=== PATIENT | female | born 1990 | race Caucasian/White ===

== ENCOUNTER 2017-06-09 06:27 | Day surgery (SDC) | payer OTHER ==
[2017-06-08 13:07] LABS: HEMATOCRIT 38.8 % (36.0-48.0); HEMOGLOBIN 13.6 g/dL (12-16); MCH 29.4 pg (26.0-34.0); MCHC 35.1 g/dL (31.0-37.0); MEAN PLATELET VOLUME 10.1 fL (7.4-10.4); RBC 4.62 10x6/uL (4.00-5.40); RDW 12.8 % (11.5-14.5); WBC 8.1 10x3/uL (4.8-10.8)
[~2017-06-09] VITALS: Ht 162.6 cm; Wt 76.2 kg
[~2017-06-09 06:27] MED LIST: BACTRIM DS TABL1 TAB PO; CYMBALTA20 MG PO; DEPAKOTE250 MG PO
[2017-06-09 09:27] VITALS: BP 111/61; Ht 162.6 cm; Wt 76.2 kg
[2017-06-09 09:38] LABS: HCG URINE POSITIVE (NEGATIVE)
--- NOTE | 2017-06-09 09:57 | NUR ---
0930 PT'S URINE PREGNACY TEST WAS POSITIVE, SERUM TEST IS ORDERED. OR NOTIFIED OF PENDING.
[2017-06-09 10:11] LABS: HCG SERUM POSITIVE (NEGATIVE)
== END 2017-06-09 10:20 | disposition home or self-care (01) ==
LOC: D.OPS 06:27 → D.PAN 10:30 → D.OPS 10:30
PROVIDERS: Anesthesiology; Surgery
DX: L05.91 Pilonidal cyst without abscess (principal); L98.8 Other specified disorders of the skin and subcutaneous tissue; F17.200 Nicotine dependence, unspecified, uncomplicated; Z01.812 Encounter for preprocedural laboratory examination; Z33.1 Pregnant state, incidental; Z53.9 Procedure and treatment not carried out, unspecified reason

== ENCOUNTER 2017-06-09 11:18 | Emergency (ER) | payer OTHER ==
[2017-06-09 09:27] VITALS: BMI 28.9
[2017-06-09 11:46] LABS: BASOPHILS 0.4 % (0-2); EOSINOPHILS 4.3 % (0-7); HEMATOCRIT 38.5 % (36.0-48.0); HEMOGLOBIN 13.2 g/dL (12-16); IMMATURE GRANULOCYTES 0.3 % (0-5); LYMPHOCYTES 38.3 % (15-50); MCH 29.2 pg (26.0-34.0); MCHC 34.3 g/dL (31.0-37.0); MCV 85.2 fL (80.0-100.0); MEAN PLATELET VOLUME 10.4 fL (7.4-10.4); MONOCYTES 10.3 % (2-11); NEUTROPHILS 46.4 % (40-80); PLATELET COUNT 276 10x3/uL (130-400); RBC 4.52 10x6/uL (4.00-5.40); RDW 12.7 % (11.5-14.5)
[2017-06-09 14:04] LABS: ALBUMIN 3.7 g/dL (3.4-5.0); ALKALINE PHOSPHATASE 67 U/L (46-116); ALT (SGPT) 19 U/L (10-68); BILIRUBIN - TOTAL 0.16 mg/dL (0.2-1.3); CALC OSMOLALITY 286 mosm/kg (275-300); CALCIUM 9.1 mg/dL (8.5-10.1); CARBON DIOXIDE 18.6 mmol/L (21.0-32.0); CHLORIDE - SERUM 108 mmol/L (98-107); CREATININE - SERUM 0.7 mg/dL (0.6-1.3); GLUCOSE 95 mg/dL (74-106); POTASSIUM - SERUM 4.2 mmol/L (3.5-5.1); PROTEIN - SERUM 6.8 g/dL (6.4-8.2); SODIUM 144 mmol/L (136-145); UREA NITROGEN 12 mg/dL (7-18); eGFR NON AFRICAN AMERICAN > 90 mL/min (90-120)
== END 2017-06-09 15:30 | disposition home or self-care (01) ==
LOC: D.ER 11:18
PROVIDERS: Emergency Medicine
DX: O20.9 Hemorrhage in early pregnancy, unspecified (principal); O03.9 Complete or unspecified spontaneous abortion without complication; F17.200 Nicotine dependence, unspecified, uncomplicated

== ENCOUNTER 2017-06-11 18:20 | Emergency (ER) | payer OTHER | END 2017-06-11 21:05 | disposition home or self-care (01) | LOC: D.ER 18:20 | DX: O03.9 Complete or unspecified spontaneous abortion without complication (principal) ==

== ENCOUNTER 2017-06-21 06:32 | Day surgery (SDC) | payer OTHER ==
[2017-06-18 15:29] LABS: HEMATOCRIT 39.5 % (36.0-48.0); HEMOGLOBIN 13.4 g/dL (12-16); MCH 29.7 pg (26.0-34.0); MCHC 33.9 g/dL (31.0-37.0); MCV 87.6 fL (80.0-100.0); MEAN PLATELET VOLUME 10.3 fL (7.4-10.4); RBC 4.51 10x6/uL (4.00-5.40); RDW 12.8 % (11.5-14.5); WBC 8.3 10x3/uL (4.8-10.8)
[~2017-06-21] VITALS: Ht 162.6 cm; Wt 76.2 kg
[~2017-06-21 06:32] MED LIST changes: +ROBAXIN500 MG PO
[2017-06-21 06:46] VITALS: BP 107/63; Ht 162.6 cm; Wt 76.2 kg
[2017-06-21 07:03] LABS: HCG URINE NEGATIVE (NEGATIVE)
[2017-06-21] MEDS ORDERED: BACTRIM DS TABL1 TAB PO (10:42)
[2017-06-21] MEDS ORDERED: HYDROCODON-ACE1 EAC7 PO (10:42)
== END 2017-06-21 12:50 | disposition home or self-care (01) ==
LOC: D.OPS 06:32 → D.PAN 07:45 → D.OPS 07:45
PROVIDERS: Anesthesiology; Surgery
DX: L05.91 Pilonidal cyst without abscess (principal); Z01.812 Encounter for preprocedural laboratory examination

== ENCOUNTER 2017-07-09 16:56 | Emergency (ER) | payer OTHER ==
[2017-06-21 06:46] VITALS: BMI 28.9
[~2017-07-09 16:56] MED LIST changes: +HYDROCODON-ACE1 EAC7 PO
== END 2017-07-09 19:00 | disposition left against medical advice (07) ==
LOC: D.ER 16:56
DX: L76.82 Other postprocedural complications of skin and subcutaneous tissue (principal)